=== PATIENT | male | born 1970 ===

== ENCOUNTER 2016-09-03 18:32 | Emergency (ER) | payer SELFPAY ==
[2016-09-03 18:39] VITALS: TEMP 98.6
[2016-09-03 20:22] LABS: BASO % 0.7 % (0.0-2.0); EOS # 0.1 K/uL (0.0-0.7); EOS % 1.4 % (0.0-4.0); HEMATOCRIT 43.7 % (35.0-51.0); LYMPH # 2.8 K/uL (1.0-4.3); LYMPH % 38.2 % (20.0-40.0); MEAN CELL VOLUME 84.7 fl (80.0-94.0); MEAN CORPUSCULAR HEMOGLOBIN 28.3 pg (27.0-31.0); MEAN CORPUSCULAR HGB CONC 33.4 g/dL (33.0-37.0); MEAN PLATELET VOLUME 9.6 fl (7.2-11.7); MONO # 0.5 K/uL (0.0-0.8); MONO % 7.1 % (0.0-10.0); NEUT # 3.8 K/uL (1.8-7.0); NEUT % 52.6 % (50.0-75.0); NRBC % 0.1 % (0.0-0.0); RED CELL DISTRIBUTION WIDTH 14.6 % (11.5-14.5); WHITE BLOOD COUNT 7.2 K/uL (4.8-10.8)
[2016-09-03 20:31] LABS: ALB/GLOB RATIO 1.3 (1.0-2.1); ALKALINE PHOSPHATASE 112 U/L (38-126); ALT/SGPT 47 U/L (21-72); AST/SGOT 41 U/L (17-59); BILIRUBIN,TOTAL 0.4 mg/dl (0.2-1.3); BLOOD UREA NITROGEN 13 mg/dl (9-20); CALCIUM 9.1 mg/dL (8.4-10.2); CARBON DIOXIDE 23 mmol/L (22-30); CHLORIDE 106 mmol/L (98-107); GFR AFRICAN-AMERICAN > 60; GLUCOSE,RANDOM 100 mg/dL (75-110); POTASSIUM 4.1 MMOL/L (3.6-5.0); SODIUM 145 mmol/l (132-148); TOTAL PROTEIN 8.1 G/DL (6.3-8.2)
[2016-09-03 21:50] VITALS: RESP 16; O2SAT 97
--- NOTE | 2016-09-03 23:17 | ED PDOC ---
HPI: Chest Pain Time Seen by Provider: 09/03/16 19:26 Chief Complaint (Nursing): Chest Pain Chief Complaint (Provider): Chest Pain History Per: Patient History/Exam Limitations: no limitations Onset/Duration Of Symptoms: Days (x4), Intermittent Episodes Current Symptoms Are (Timing): Still Present Associated Symptoms: denies: Dyspnea Modifying Factors: None Exacerbating Factors: None Alleviating Factors: None Additional Complaint(s): 45 year old male presents to ED with complaints of intermittent left sided chest pain x4 days and has no past medical history. Patient denies any exacerbating or alleviating factors. (-) dyspnea, cough, fever, intestinal symptoms, sore throat, or headache. PCP: Non [facility] Past Medical History Reviewed: Historical Data, Nursing Documentation, Vital Signs Vital Signs: Last Vital Signs Temp 98.6 F 09/03/16 18:35 Pulse 76 09/03/16 20:30 Resp 16 09/03/16 20:30 BP 134/83 09/03/16 20:30 Pulse Ox 97 09/03/16 20:30 - Medical History PMH: No Chronic Diseases - Surgical History Surgical History: No Surg Hx - Social History Current smoker - smoking cessation education provided: No Ex-Smoker (has not smoked in the last 12 months): No Alcohol: None Drugs: Denies - Home Medications Home Medications: Ambulatory Orders Medication Instructions Recorded Metoclopramide [Reglan] 10 mg PO Q6 PRN #20 tab 07/10/15 Naproxen [Naprosyn] 500 mg PO BID #20 tab 07/10/15 Dicyclomine [Bentyl] 10 mg PO QID PRN #10 cap 07/30/15 Ibuprofen 600 mg PO Q6 PRN #20 tablet 07/30/15 Naproxen [Naprosyn] 500 mg PO BID PRN #14 tablet 09/03/16 - Allergies Allergies/Adverse Reactions: Allergies Allergy/AdvReac Type Severity Reaction Status Date / Time No Known Allergies Allergy Verified 07/30/15 16:53 Review of Systems ROS Statement: Except As Marked, All Systems Reviewed And Found Negative Constitutional: Negative for: Fever ENT: Negative for: Throat Pain Cardiovascular: Positive for: Chest Pain Respiratory: Negative for: Cough, Other (dyspnea) Gastrointestinal: Negative for: Other (No GI symptoms) Neurological: Negative for: Headache Physical Exam - Reviewed Nursing Documentation Reviewed: Yes Vital Signs Reviewed: Yes - Physical Exam Appears: Positive for: Non-toxic, No Acute Distress Skin: Positive for: Normal Color, Warm, Dry Eye Exam: Positive for: Normal appearance ENT: Positive for: Normal ENT Inspection Neck: Positive for: Normal, Painless ROM, Supple Cardiovascular/Chest: Positive for: Regular Rate, Rhythm. Negative for: Murmur Respiratory: Positive for: Normal Breath Sounds. Negative for: Respiratory Distress Gastrointestinal/Abdominal: Positive for: Soft. Negative for: Tenderness Back: Positive for: Normal Inspection Extremity: Positive for: Normal ROM. Negative for: Deformity Neurologic/Psych: Positive for: Alert, Oriented. Negative for: Motor/Sensory Deficits - Laboratory Results Result Diagrams: 09/03/16 20:00 09/03/16 20:00 - ECG ECG Rhythm: Positive for: Normal QRS, Normal ST Segment, Sinus Rhythm Rate: 60 O2 Sat by Pulse Oximetry: 97 (RA) Pulse Ox Interpretation: Normal - Radiology X-Ray: Viewed By Me X-Ray Interpretation: No Acute Disease Nexus Criteria: Negative Medical Decision Making Medical Decision Makin Initial impression: undifferentiated chest pain Patient without risk factors Initial plan: * EKG * labs * UDrug * Trop I * D Dimer * CXR * ASA 325mg PO * Re-eval Heart score: 0 2300 Upon re-evaluation, patient is feeling much better and is stable for discharge. Patient is medically stable and ready for discharge. Counseling has been provided and patient is in agreement. Return if symptoms persist or acutely worsen. Scribe Attestation: Documented by Jacquelyn Soares acting as a scribe for Florin Obando DO. MD Scribe Attestation: All medical record entries made by the Scribe were at my direction and personally dictated by me. I have reviewed the chart and agree that the record accurately reflects my personal performance of the history, physical exam, medical decision making, and the department course for this patient. I have also personally directed, reviewed, and agree with the discharge instructions and disposition. Disposition - Clinical Impression Clinical Impression: Chest pain - Disposition Referrals: [facility] [Outside] Disposition: Routine/Home Disposition Time: 23:00 Condition: STABLE Additional Instructions: See clinic for further testing. Return to ER for any worse or new symptoms. Prescriptions: Naproxen [Naprosyn] 500 mg PO BID PRN #14 tablet PRN Reason: Pain, Moderate (4-7) Instructions: Chest Pain (ED) Print Language: SAMOAN
[2016-09-03 23:20] VITALS: BP 123/69
[2016-09-03 23:22] VITALS: PULSE 60
--- NOTE | 2016-09-04 07:11 | CARD ---
APPROVED REPORT EKG Measurement Heart [id number] <Conclusion> Normal sinus rhythm Normal ECG
--- NOTE | 2016-09-04 08:25 | RAD ---
HISTORY: chest pain COMPARISON: Comparison is made to the previous study dated 04/19/2013 TECHNIQUE: Chest PA and lateral FINDINGS: LUNGS: No active pulmonary disease. PLEURA: No significant pleural effusion identified. No pneumothorax apparent. CARDIOVASCULAR: Normal. OSSEOUS STRUCTURES: No significant abnormalities. VISUALIZED UPPER ABDOMEN: Normal. OTHER FINDINGS: None. IMPRESSION: No active disease.
== END 2016-09-03 23:20 | disposition home or self-care (01) ==
LOC: H.ER 18:32
DX: R07.9 Chest pain, unspecified (principal)
CPT/HCPCS: 71020; 80053; 84484; 85025; 85378; 93005; 99282; G0480

== ENCOUNTER 2018-08-18 18:20 | Emergency (ER) | payer OTHER ==
[2018-08-18 19:04] VITALS: O2SAT 98
[2018-08-18] MEDS ORDERED: Simethicone 80 mg Chewtab PO STA (19:36)
[2018-08-18 21:20] LABS: BASO % 0.7 % (0.0-2.0); EOS # 0.1 K/uL (0.0-0.7); EOS % 1.8 % (0.0-4.0); HEMOGLOBIN 14.3 g/dL (12.0-18.0); LYMPH # 2.2 K/uL (1.0-4.3); LYMPH % 39.7 % (20.0-40.0); MEAN CELL VOLUME 84.2 fl (80.0-94.0); MEAN CORPUSCULAR HEMOGLOBIN 28.2 pg (27.0-31.0); MEAN CORPUSCULAR HGB CONC 33.5 g/dL (33.0-37.0); MEAN PLATELET VOLUME 9.3 fl (7.2-11.7); MONO # 0.4 K/uL (0.0-0.8); MONO % 7.1 % (0.0-10.0); NEUT # 2.7 K/uL (1.8-7.0); NEUT % 50.7 % (50.0-75.0); NRBC % 0.3 % (0.0-0.0); RBC 5.08 Mil/uL (4.40-5.90); WHITE BLOOD COUNT 5.4 K/uL (4.8-10.8)
--- NOTE | 2018-08-18 21:28 | ED PDOC ---
HPI: Abdomen Time Seen by Provider: 08/18/18 19:29 Chief Complaint (Nursing): Abdominal Pain Chief Complaint (Provider): Abdominal Pain History Per: Patient History/Exam Limitations: no limitations Onset/Duration Of Symptoms: Days (x 2 weeks) Current Symptoms Are (Timing): Still Present Context: Food Quality Of Discomfort: Other (distension) Additional Complaint(s): 47 year old male presents to the ED for evaluation of two weeks of abdominal swelling as well as his abdomen "making noises". Patient is unsure what caused the symptoms, but thinks it could be related to inadequately cooked chicken. Denies nausea, vomiting, constipation, fever and pain. PMD: none provided Past Medical History Reviewed: Historical Data, Nursing Documentation, Vital Signs Vital Signs: Last Vital Signs Temp 98.6 F 08/18/18 19:00 Pulse 73 08/18/18 19:00 Resp 16 08/18/18 19:00 BP 121/82 08/18/18 19:00 Pulse Ox 98 08/18/18 19:00 - Medical History PMH: No Chronic Diseases - Surgical History Surgical History: No Surg Hx - Family History Family History: States: Unknown Family Hx - Home Medications Home Medications: Ambulatory Orders Medication Instructions Recorded Metoclopramide [Reglan] 10 mg PO Q6 PRN #20 tab 07/10/15 Naproxen [Naprosyn] 500 mg PO BID #20 tab 07/10/15 Dicyclomine [Bentyl] 10 mg PO QID PRN #10 cap 07/30/15 Ibuprofen 600 mg PO Q6 PRN #20 tablet 07/30/15 Naproxen [Naprosyn] 500 mg PO BID PRN #14 tablet 09/03/16 - Allergies Allergies/Adverse Reactions: Allergies Allergy/AdvReac Type Severity Reaction Status Date / Time No Known Allergies Allergy Verified 08/18/18 19:00 Review of Systems ROS Statement: Except As Marked, All Systems Reviewed And Found Negative Constitutional: Negative for: Fever, Chills Gastrointestinal: Positive for: Other (abdominal distension). Negative for: Nausea, Vomiting, Abdominal Pain, Diarrhea Physical Exam - Reviewed Nursing Documentation Reviewed: Yes Vital Signs Reviewed: Yes - Physical Exam Appears: Positive for: Non-toxic, No Acute Distress Head Exam: Positive for: ATRAUMATIC, NORMAL INSPECTION, NORMOCEPHALIC Skin: Positive for: Normal Color, Warm, Dry Eye Exam: Positive for: EOMI, Normal appearance, PERRL Neck: Positive for: Normal, Painless ROM, Supple Cardiovascular/Chest: Positive for: Regular Rate, Rhythm. Negative for: Murmur Respiratory: Positive for: Normal Breath Sounds. Negative for: Respiratory Distress Gastrointestinal/Abdominal: Positive for: Normal Exam, Soft. Negative for: Tenderness, Mass, Guarding, Rebound Back: Positive for: Normal Inspection. Negative for: L CVA Tenderness, R CVA Tenderness Extremity: Positive for: Normal ROM. Negative for: Deformity Neurological/Psych: Positive for: Awake, Alert, Normal Tone, Oriented. 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 Patient repo rts improvement of symptoms. He will be discharged and is to follow up outpatient as needed. ------- Scribe Attestation: Documented by Zita Beltran, acting as a scribe for Leti Dejesus MD. Provider Scribe Attestation: All medical record entries made by the Scribe were at my direction and personally dictated by me. I have reviewed the chart and agree that the record accurately reflects my personal performance of the history, physical exam, medical decision making, and the department course for this patient. I have also personally directed, reviewed, and agree with the discharge instructions and disposition. Disposition - Clinical Impression Clinical Impression: Abdominal discomfort, Bloating - Patient ED Disposition Is Patient to be Admitted: No - Disposition Referrals: [facility] [Outside] Disposition Time: 22:45 Condition: IMPROVED Instructions: Gas and Bloating Forms: Zingku (Kyrgyz), Zingku (Croatian) Print Language: GEORGIAN
[2018-08-18 21:41] LABS: ALB/GLOB RATIO 1.3 (1.0-2.1); ALBUMIN 4.5 g/dL (3.5-5.0); ALT/SGPT 39 U/L (21-72); AST/SGOT 37 U/L (17-59); BLOOD UREA NITROGEN 11 mg/dl (9-20); CALCIUM 9.7 mg/dL (8.4-10.2); GFR NON-AFRICAN AMERICAN > 60; LIPASE 46 U/L (23-300)
[2018-08-18 23:02] VITALS: BP 123/68; PULSE 62; RESP 18; TEMP 98.2
== END 2018-08-18 23:19 | disposition home or self-care (01) ==
LOC: H.ER 18:20
DX: R14.0 Abdominal distension (gaseous) (principal)
CPT/HCPCS: 80053; 83690; 85025; 96374; 99283; J2765